=== PATIENT | female | born 2005 | race Two or more races ===

== ENCOUNTER 2024-09-24 20:42 | Emergency (ER) | payer MEDICAID ==
[~2024-09-24] VITALS: Ht 147.3 cm; Wt 59.1 kg
[2024-09-24 20:51] VITALS: BP 103/74; PULSE 77; RESP 20; TEMP 98.4; O2SAT 98
[2024-09-24 21:05] LABS: APPEARANCE,URINE CLEAR (CLEAR); BILIRUBIN,URINE NEGATIVE (NEGATIVE); COLOR,URINE YELLOW (YELLOW); GLUCOSE, URINE (UA) NEGATIVE (NEGATIVE); KETONES,URINE TRACE mg/dL (NEGATIVE); LEUKOCYTE ESTERASE ,URINE TRACE (NEGATIVE); NITRATE,URINE NEGATIVE (NEGATIVE); OCCULT BLOOD,URINE SMALL (NEGATIVE); PROTEIN,URINE TRACE mg/dL (NEGATIVE); SPECIFIC GRAVITIY, URINE 1.024 (1.003-1.030); UROBILINOGEN,URINE <=1.0 mg/dL (<=1.0)
[2024-09-24 21:21] LABS: BASOPHILS % (AUTO) 0.3 % (0.0-2.0); EOSINOPHILS % (AUTO) 1.6 % (1.0-6.0); HEMOGLOBIN 15.2 g/dL (12.0-16.0); LYMPHOCYTES # (AUTO) 2.3 K/uL (1.0-4.8); LYMPHOCYTES % (AUTO) 21.2 % (22.0-44.0); MEAN CORPUSCULAR HEMOGLOBIN 29.3 pg (26.0-34.0); MEAN CORPUSCULAR HGB CONC 33.8 G/dL (31.0-37.0); MEAN CORPUSCULAR VOLUME 87 fL (80-100); MONOCYTES # (AUTO) 0.6 K/uL (0.1-1.0); MONOCYTES % (AUTO) 5.8 % (2.0-9.0); NEUTROPHILS # (AUTO) 7.7 K/uL (1.8-7.7); NEUTROPHILS % (AUTO) 71.1 % (40.0-70.0); PLATELET COUNT (AUTO) 313 K/uL (150-450); RED CELL DISTRIBUTION WIDTH 13.3 % (11.5-14.5); WHITE BLOOD COUNT (AUTO) 10.8 K/uL (4.5-11.0)
[2024-09-24 21:21] LABS: BACTERIA,URINE Few /HPF (None Seen); RBC,URINE 0-2 /HPF (0-2); SQUAMOUS EPITHELIAL CELL,UR Few /LPF (None Seen); WBC,URINE 0-2 /HPF (0-5)
[2024-09-24 21:25] LABS: ANION GAP 10 mmol/L (8-16); CALCIUM, TOTAL 9.5 mg/dL (8.8-10.5); CARBON DIOXIDE 30 mmol/L (22-29); CHLORIDE 100 mmol/L (98-107); CREATININE 0.61 mg/dL (0.60-1.30); GLOMERULAR FILTR. RATE CALC > 60 mL/min (>60); GLUCOSE,RANDOM 88 mg/dL (70-110); POTASSIUM 3.8 mmol/L (3.5-5.1); SODIUM SERUM 140 mmol/L (136-145); UREA NITROGEN, BLOOD 8 mg/dL (7-18)
[2024-09-24 21:35] LABS: ALBUMIN 4.1 g/dL (3.4-5.0); BILIRUBIN,DIRECT 0.1 mg/dL (0.00-0.20); BILIRUBIN,TOTAL 0.5 mg/dL (0.1-1.0); TOTAL PROTEIN, SERUM 8.4 g/dL (6.4-8.2)
[2024-09-24 21:52] LABS: HCG,QUANTITATIVE 2 mIU/mL (0-6); LIPASE 41 U/L (16-77)
[2024-09-24] MEDS: ONDANSETRON HCL 4 MG/2 ML VIAL IVP ONE (23:01)
[2024-09-24] MEDS: KETOROLAC TROMETHAMINE 30 MG/ML VIAL IVP ONE (23:01)
[2024-09-24] MEDS: IOHEXOL 9 MG/ML 500 ML BOTTLE PO ONE (23:02)
[2024-09-24] MEDS: SODIUM CHLORIDE 0.9% 2,000 ML IV ONE (23:02)
[2024-09-24] MEDS ORDERED: SODIUM CHLORIDE 0.9% 100 ML ONE (23:37)
[2024-09-24] MEDS ORDERED: IOHEXOL 350 MG/ML 100 ML VIAL ONE (23:37)
[2024-09-25] MEDS ORDERED: ONDA-104 PO (01:40)
[2024-09-25] MEDS ORDERED: IBUP-1554 PO (01:40)
[2024-09-25] MEDS ORDERED: ACET-2080 PO (01:40)
== END 2024-09-25 02:36 | disposition left against medical advice (07) ==
LOC: EMS 20:45
DX: N83.201 Unspecified ovarian cyst, right side (principal); R11.10 Vomiting, unspecified
CPT/HCPCS: 99285; 74177; 96374; 96361; 96375; 80048; 80076; 81001; 83690; 84702; 85025; 36415; J1885; Q9967 ×2; J2405; J7030; J7050